=== PATIENT | female | born 1995 | race Caucasian/White ===

== ENCOUNTER 2018-07-22 15:57 | Inpatient (IN) | payer OTHER ==
[~2018-07-22] VITALS: Ht 170.2 cm; Wt 85.7 kg
[2018-07-22] MEDS ORDERED: PROMETHAZINE 25 MG/ML VIAL IVP PRN (16:25)
[2018-07-22] MEDS ORDERED: NALBUPHINE 10 MG/ML AMP IVP PRN (16:25)
[2018-07-22] MEDS ORDERED: OXYTOCIN 10 UNITS/ML VIAL IM SCH (16:25)
[2018-07-22 17:04] VITALS: BP 126/74
[2018-07-22 17:33] LABS: BASOPHILS % (AUTO) 0.1 % (0.0-2.0); EOSINOPHILS % (AUTO) 0.3 % (0.0-4.0); HEMATOCRIT 29.8 % (36-48); HEMOGLOBIN 9.7 g/dL (12.0-16.0); LYMPHOCYTES # (AUTO) 1.6 K/uL (2.5-16.5); LYMPHOCYTES % (AUTO) 21.5 % (20.5-51.1); MEAN CORPUSCULAR HEMOGLOBIN 27 pg (27-31); MEAN CORPUSCULAR HGB CONC 33 g/dL (33-37); MEAN CORPUSCULAR VOLUME 81.5 fL (80-94); MONOCYTES # (AUTO) 0.5 K/uL (0.8-1.0); NEUTROPHILS # (AUTO) 5.5 K/uL (1.8-7.7); NEUTROPHILS % (AUTO) 72.1 % (42.2-75.2); PLATELET COUNT (AUTO) 185 K/uL (140-450); RED BLOOD CELL COUNT(AUTO) 3.66 MIL/uL (4.20-5.40); RED CELL DISTRIBUTION WIDTH 16.1 % (11.6-13.7); WHITE BLOOD COUNT (AUTO) 7.6 K/uL (4.8-10.8)
[2018-07-22 17:33] LABS: APPEARANCE,URINE SL CLOUDY (CLEAR); BILIRUBIN,URINE NEGATIVE (NEGATIVE); BLOOD, URINE NEGATIVE (NEGATIVE); COLOR,URINE YELLOW (YELLOW); LEUKOCYTE ESTERASE ,URINE 1+ (NEGATIVE); NITRITE, URINE POSITIVE (NEGATIVE); UGLUCOSE NEGATIVE (NEGATIVE)
[2018-07-22 18:07] LABS: RBC,URINE NONE SEEN /HPF (0-5); WBC,URINE 20-60 /HPF (0-5)
[2018-07-22] MEDS: LACTATED RINGERS 1,000 ML IV SCH ×2 (18:38→23:57)
[2018-07-22 19:35] VITALS: BP 111/66
[2018-07-22] MEDS ORDERED: MISOPROSTOL 25 MCG TAB ONE (19:46)
[2018-07-22] MEDS ORDERED: MISOPROSTOL 25 MCG TAB VG SCH (21:00)
[2018-07-22] MEDS ORDERED: PROMETHAZINE 25 MG/ML VIAL ONE (23:21)
[2018-07-22] MEDS ORDERED: NALBUPHINE 10 MG/ML AMP ONE (23:21)
[2018-07-23] MEDS ORDERED: BUPIVACAINE 0.125%/NS PREMIX 250 ML ONE (00:05)
[2018-07-23] MEDS ORDERED: BUPIVACAINE 0.125%/NS PREMIX 250 ML EPI SCH (00:30)
[2018-07-23] MEDS: LACTATED RINGERS 1,000 ML IV SCH ×2 (01:00→09:32)
[2018-07-23] MEDS ORDERED: OXYTOCIN 20 UNITS/LR PREMIX 1,000 ML IV ONE (06:25)
--- NOTE | 2018-07-23 08:01 | NUR ---
PATIENT HAS BEEN SCREENED AND CATEGORIZED LOW RISK. PATIENT WILL BE SEEN WITHIN 7 DAYS OF ADMISSION. 07/29/[address], [facility]
[2018-07-23] MEDS ORDERED: OXYTOCIN 10 UNITS/ML VIAL ONE (17:18)
[2018-07-23] MEDS ORDERED: METHYLERGONOVINE 0.2 MG/ML AMP ONE (17:19)
[2018-07-23] MEDS ORDERED: OXYTOCIN 20 UNITS in LACTATED RINGERS 1,000 ML IV SCH (18:21)
[2018-07-23] MEDS ORDERED: MEASLES, MUMPS, AND RUBELLA 1 VIAL SQVAC PRN (18:25)
[2018-07-23] MEDS: IBUPROFEN 600 MG TAB PO PRN (20:04)
[2018-07-24 08:21] LABS: BASOPHILS % (AUTO) 0.3 % (0.0-2.0); EOSINOPHILS # (AUTO) 0.1 K/uL (0-0.4); HEMATOCRIT 26.4 % (36-48); HEMOGLOBIN 8.7 g/dL (12.0-16.0); LYMPHOCYTES # (AUTO) 1.8 K/uL (2.5-16.5); LYMPHOCYTES % (AUTO) 19.1 % (20.5-51.1); MEAN CORPUSCULAR HEMOGLOBIN 27 pg (27-31); MEAN CORPUSCULAR HGB CONC 33 g/dL (33-37); MEAN CORPUSCULAR VOLUME 81.7 fL (80-94); MONOCYTES # (AUTO) 0.9 K/uL (0.8-1.0); MONOCYTES % (AUTO) 9.1 % (1.7-9.3); NEUTROPHILS # (AUTO) 6.6 K/uL (1.8-7.7); NEUTROPHILS % (AUTO) 70.5 % (42.2-75.2); PLATELET COUNT (AUTO) 164 K/uL (140-450); RED BLOOD CELL COUNT(AUTO) 3.24 MIL/uL (4.20-5.40); RED CELL DISTRIBUTION WIDTH 15.8 % (11.6-13.7); WHITE BLOOD COUNT (AUTO) 9.4 K/uL (4.8-10.8)
[2018-07-24] MEDS: ACETAMINOPHEN 325 MG TAB PO PRN (13:10)
[2018-07-24] MEDS: IBUPROFEN 600 MG TAB PO PRN (21:41)
[2018-07-25] MEDS: ACETAMINOPHEN 325 MG TAB PO PRN (00:08)
[2018-07-25] MEDS ORDERED: FERR325E14 PO (11:43)
[2018-07-25] MEDS ORDERED: ACET-9800 PO (11:45)
[2018-07-25] MEDS: IBUPROFEN 600 MG TAB PO PRN (12:25)
[2018-07-25] MEDS ORDERED: NITR100C7 PO (13:05)
== END 2018-07-25 14:40 | disposition home or self-care (01) | DRG 560 ==
LOC: MLD 15:57 → MFCC 07-23 20:35
PROVIDERS: ADMIT Obstetrics & Gynecology; ATTEND Obstetrics & Gynecology
PROC: 10E0XZZ Delivery of Products of Conception, External Approach (ICD-10-PCS; principal; 2018-07-22)
PROC: 10907ZC Drainage of Amniotic Fluid, Therapeutic from Products of Conception, Via Natural or Artificial Opening (ICD-10-PCS; 2018-07-22)
PROC: 3E0R3BZ Introduction of Anesthetic Agent into Spinal Canal, Percutaneous Approach (ICD-10-PCS; 2018-07-22)
PROC: 00HU33Z Insertion of Infusion Device into Spinal Canal, Percutaneous Approach (ICD-10-PCS; 2018-07-22)
PROC: 3E033VJ Introduction of Other Hormone into Peripheral Vein, Percutaneous Approach (ICD-10-PCS; 2018-07-22)
PROC: 3E0234Z Introduction of Serum, Toxoid and Vaccine into Muscle, Percutaneous Approach (ICD-10-PCS; 2018-07-23)
DX: O80 Encounter for full-term uncomplicated delivery (principal); Z23 Encounter for immunization; Z3A.39 39 weeks gestation of pregnancy; Z37.0 Single live birth
CPT/HCPCS: 36415; 51702; 59200; 59409; 76815; 81001; 85025; 86592; 86886; 86900; 86901; 87086; 87186; J2210; J2300; J2550; J2590; J3490; J7120; Q0092